=== PATIENT | female | born 2000 ===

== ENCOUNTER 2025-08-19 10:55 | Outpatient (CLI) | payer OTHER | END 2025-08-19 10:56 | disposition home or self-care (01) | LOC: PRENATAL 10:55 | PROVIDERS: ATTEND Obstetrics & Gynecology Maternal & Fetal Medicine | DX: O44.00 Complete placenta previa NOS or without hemorrhage, unspecified trimester (principal); Z3A.20 20 weeks gestation of pregnancy ==